=== PATIENT | female | born 1985 | race Caucasian/White ===

== ENCOUNTER → 2018-08-30 | Outpatient (CLI) | payer OTHER ==
--- NOTE | 2018-08-31 08:42 | KCIC ---
EXAM: Brain MRI without contrast. HISTORY: Headaches. TECHNIQUE: Multiplanar, multisequence magnetic resonance imaging of the brain was performed without contrast. COMPARISON: None. FINDINGS: There is no restricted diffusion to suggest acute or subacute infarction. There is no susceptibility effect to suggest hemorrhage. There is no mass effect or midline shift. There is no hydrocephalus. No suspicious white matter lesion is seen. The orbits are unremarkable. There is mild paranasal sinus mucosal thickening. The mastoid air cells are unremarkable. There are normal flow voids within the cerebral vessels. No calvarial lesion is seen. IMPRESSION: No acute intracranial finding. Electronically signed by: Sarah Spears MD (08/31/2018 8:38 AM) [id number]
== END | disposition home or self-care (01) ==
LOC: KCIC MRI 17:29
PROVIDERS: ATTEND Registered Nurse
DX: R51 Headache (principal); J34.89 Other specified disorders of nose and nasal sinuses
CPT/HCPCS: 70551